=== PATIENT | male | born 1995 | race Caucasian/White ===

== ENCOUNTER 2024-11-17 08:43 | Outpatient (CLI) | payer BC, SELFPAY ==
--- NOTE | ~2024-11-17 | MR_ITS ---
EXAMINATION: MR pelvis wo/w con DATE: 11/17/2024 10:04 INDICATION: Other intra-abdominal and pelvic swelling or mass. TECHNIQUE: Magnetic resonance imaging (MRI) of the pelvis was performed without and with 15 mL Multih ance intravenous contrast. Sequences included coronal T2-weighted SS-FSE, coronal and axial FS 2D-FI ESTA, axial STIR FSE, axial T2-weighted SS-FSE, axial T2-weighted FS SS-FSE, axial diffusion-weighted SE, axial dual-echo T1-weighted FSPGR, and axial and coronal T1-weighted LAVA. Postcontrast axial T1 -weighted LAVA images were obtained in a time course. Postcontrast coronal T1-weighted LAVA images we re obtained. COMPARISON: CT dated 10/30/1953 FINDINGS: Again seen is a 7.6 x 5.9 x 5.9 cm retrorectal/presacral mass which is T1 isointense and slightly T2 hyperintense to skeletal muscle. The mass demonstrates a heterogeneous pattern of enhancement. Caudal ly the mass appears to encircle the caudal-most coccygeal segment. There is normal bone marrow signal both at the coccyx and remainder of the visualized bones. There appears be a thin intervening fat pl ane between the anterior margin of the mass in the more anterior rectum. Bladder and prostate are unr emarkable. No bowel obstruction. No free fluid in the pelvis. No pathologically enlarged pelvic or in guinal lymphadenopathy. IMPRESSION: 1. Heterogeneous enhancement associated with a 7.6 x 5.9 x 5.9 cm retrocecal/presacral mass, the post erior portion of which surrounds the distalmost coccygeal segment. Differential as previously detaile d includes both benign and malignant etiologies and would recommend percutaneous core needle biopsy. Reviewed, dictated and finalized at location A. STOCK TRANSFER CLERK IMPRESSION: 1. Heterogeneous enhancement associated with a 7.6 x 5.9 x 5.9 cm retrocecal/pr esacral mass, the posterior portion of which surrounds the distalmost coccygeal segment. Differential as previously detailed includes both benign and malignan t etiologies and would recommend percutaneous core needle biopsy.
--- OUTSIDE RECORDS SUMMARY | 2024-11-17 09:13 | XMS_ITS | Patient Health Summary ---
Author Organization [facility] Address [address] [place] [address] Care Team Providers Care Coin Machine Servicer Repairer Name Role Phone Unavailable Primary Care Provider Unavailabl e Note from [facility],non-owned Affiliates and Associated Physician Practices is amultiple site organization consisting of ambulatory clinics and hospital sitesin [place], [place], [place] and [place]. This disclosure is being madepursuant to the Care Everywhere program and may not contain all information available regarding this patient. Last updated 18.[facility] [email or web address] Social History Tobacco Use Types Packs/Day Years Used Date Smoking Tobacco: Never Assessed Sex and Gender Information Value Date Recorded Sex Assigned at Not on file Gender Identity Not on file Sexual Orientation Not on file
--- OUTSIDE RECORDS SUMMARY | 2024-11-17 09:13 | XMS_ITS | Clinical Summary ---
Author Organization [facility] Address [address] [address] Care Team Providers Care Watch Leader Name Role Phone Unavailable Primary Care Provider Unavailabl e Source Comments [facility],non-owned Affiliates and Associated Physician Practices is amultiple site organization consisting of ambulatory clinics and hospital sitesin [place], [place], [place] and [place]. This disclosure is being madepursuant to the Care Everywhere program and may not contain all information available regarding this patient. Last updated 18.[facility] Health Encounters Date Type Department Care Team Description 11/15/2024 Travel from Last 3 Months Social History Tobacco Use Types Packs/Day Years Used Date Smoking Tobacco: Never Assessed Sex and Gender Information Value Date Recorded Sex Assigned at Not on file Gender Identity Not on file Sexual Orientation Not on file Plan of Treatment Upcoming Encounters Date Type Department Care Team (Late st Contact Info) Description 11/20/2024 1:15 PM FEEDER CATCHER Office Visit [facility] - General Surgery [address] [place] [id number] Mitul Hdz MD [address] [facility] [address] [place] [id number] Health Maintenance Due Date Last Done Comments HIV SCREENING 2009 HEPATITIS C SCREENING 12/23/2012 DTAP/TDAP/TD VACCINES (1 - Tdap) 2013 HEPATITIS B VACCINE (1 of 3 - 19+ 3-dose series) 2013 COVID-19 VACCINE ( - 2023-2 5 season) 2024 INFLUENZA VACCINE (#1) 2024 DEPRESSION SCREENING 09/27/2024 ZOSTER VACCINE (1 of 2) 2044 HIB VACCINE Aged Out No longer eligi ble based on patient's age to complete this topic HPV VACCINE Aged Out No longer eligi ble based on patient's age to complete this topic MENINGOCOCCAL (Group B) VACCINE Aged Out No longer eligible based on patient's age to complete this topic MENINGOCOCCAL VACCINE Aged Out No sherlyn amie eligible based on patient's age to complete this topic PNEUMOCOCCAL VACCINE Aged Out No long er eligible based on patient's age [place] [address] Lupillo Pickering Personal/Family Self 1995
--- OUTSIDE RECORDS SUMMARY | 2024-11-17 09:13 | XMS_ITS | Clinical Summary ---
Author Organization [facility] Address [address] [place] [address] Phone Care Team Providers Care Watch Guard Gate Name Role Phone Vivi Erickson MD Primary Care Provider [phone] Allergies No known active allergies Medications finasteride (PROSCAR) 5 mg tabletIndications :Encounter for preventative adult health care examination Take 0.5 Tablets (2.5 mg) by mouth daily. TAKE ONE-HALF (1/2) TABLET DAILY 10 Tablet 1 Active Active Problems No known active problems Social History Tobacco Use Types Packs/Day Years Used Date Smoking Tobacco: Never Smokeless Tobacco: Never Sex and Gender Information Value Date Recorded Sex Assigned at Not on file Legal Sex Male 4:36 PM CDT Gender Identity Not on file Sexual Orientation Not on file Last Filed Vital Signs Vital Sign Reading Time Taken Comments Blood Pressure 136/80 07/10/2019 9:57 AM CDT Pulse 58 07/10/2019 9:57 AM CDT Temperature - - Respiratory Rate - - Oxygen Saturation - - Inhaled Oxygen Concentration - - Weight 67.6 kg (149 lb) 07/10/2019 9:57 AM CDT Height 180.3 cm (5' 11 ) 07/10/2019 9:57 AM CDT Body Mass Index 20.78 07/10/2019 9:57 AM CDT Plan of Treatment Health Maintenance Due Date Last Done Comments HEPATITIS B VACCINES (1 of 3 - 19+ 3-dose series) 2013 INFLUENZA VACCINE (#1) 2024 08/24/2016 Preventative Visit- Commercial 09/27/2024 07/10/2019, 04/11/2018 DTAP/TDAP/TD VACCINES (2 - T d or Tdap) 12/15/2028 12/15/2018 HPV VACCINES Aged Out No longer eligi ble based on patient's age to complete this topic Insurance [facility] BLUE ACCESS CHOICE Care Teams Watch Guard Gate Relationship Specialty [place] [address] [place] [id number] PCP - General Family Practice 04/11/18
--- OUTSIDE RECORDS SUMMARY | 2024-11-17 09:13 | XMS_ITS | Referral Summary ---
Author Organization [facility] Address [address] [place] [address] Care Team Providers Care Gelatin Dynamite Packing Operator Name Role Phone Unavailable Primary Care Provider Unavailabl e Source Comments [facility],non-owned Affiliates and Associated Physician Practices is amultiple site organization consisting of ambulatory clinics and hospital sitesin [place], [place] and [place]. This disclosure is being madepursuant to the Care Everywhere program and may not contain all information available regarding this patient. Last updated 18.[facility] Health Encounters Date Type Department Care Team [...] st Contact Info) Description 11/20/2024 1:15 PM SENIOR QUALITY MANAGER Office Visit [facility] - General Surgery [address] [place] [id number] Mitul Hdz MD [address] [facility] [address] [place] [address] Raheel Lupillo Personal/Family Self 1995
== END 2024-11-17 08:44 | disposition home or self-care (01) ==
LOC: ANHIMG 08:47
PROVIDERS: PCP Family Medicine; Visit Provider Surgery
DX: R22.9 Localized swelling, mass and lump, unspecified (principal); R19.09 Other intra-abdominal and pelvic swelling, mass and lump
CPT/HCPCS: 72197; A9577

== ENCOUNTER 2025-01-31 14:31 | Outpatient (CLI) | payer BC, SELFPAY ==
--- NOTE | ~2025-01-31 | MR_ITS ---
EXAMINATION: MR pelvis wo/w con DATE: 01/31/2025 15:49 INDICATION: Chordoma of the pelvis TECHNIQUE: Magnetic resonance imaging (MRI) of the pelvis was performed without and with 14 mL Multih ance intravenous contrast. Sequences included coronal T2-weighted SS-FSE, coronal and axial FS 2D-FI ESTA, axial STIR FSE, axial T2-weighted SS-FSE, axial T2-weighted FS SS-FSE, axial diffusion-weighted SE, axial dual-echo T1-weighted FSPGR, and axial and coronal T1-weighted LAVA. Postcontrast axial T1 -weighted LAVA images were obtained in a time course. Postcontrast coronal T1-weighted LAVA images we re obtained. COMPARISON: 11/17/2024 FINDINGS: No significant interval change in a 7.7 x 5.5 x 5.8 cm presacral mass which encircles the caudal-most coccygeal segment. The mass is T1 isointense and slightly T2 hyperintense to skeletal muscle with he terogeneous pattern of enhancement. Normal marrow signal within the coccyx and remaining bones. There is a retained saturating T1 hyperintense fat plane between the mass and the rectum. Bladder and pros arriola are unremarkable. No pathologically enlarged pelvic or inguinal lymphadenopathy. IMPRESSION: 1. No significant interval change in a 7.7 x 5.8 x 5.8 cm and presacral mass which surrounds the dist almost coccygeal segment, reportedly a chordoma. Reviewed, dictated and finalized at location A. IMPRESSION: 1. No significant interval change in a 7.7 x 5.8 x 5.8 cm and presacral mass wh ich surrounds the distalmost coccygeal segment, reportedly a chordoma.
--- OUTSIDE RECORDS SUMMARY | 2025-01-31 14:37 | XMS_ITS | Clinical Summary ---
Author Organization [facility] Address [address] [place] [address] Care Team Providers Care [employer] Caser Name Role Phone Ulises Han MD Primary Care Provider [phone] Source Comments [facility],non-owned Affiliates and Associated Physician Practices is amultiple site organization consisting of ambulatory clinics and hospital sitesin [place], [place], [place] and [place]. This disclosure is being madepursuant to the Care Everywhere program and may not contain all information available regarding this patient. Last updated 18.[facility] Allergies No known active allergies Medications * Be aware that medications may not be up to date on this document. Alwaysverify current medications with the patient. finasteride (Propecia) 1 MG tablet Take 1 (one) tablet by mouth once daily Active polyethylene glycol (Golytely) solution Drink half of prep solution at 5pm the night before colonoscopy. Finish the prep at 4am the day of test. 4000 mL 01/04/2025 Active Active Problems Problem Noted Date Diagnosed Date Pelvic mass 11/20/2024 Encounters Date Type Department Care Team Description 01/09/2025 10:30 AM CDT - 01/09/2025 11:15 AM CDT Surgery [facility] ENDOSCOPY [address] [place] [address] Caesar Coe MD COLONOSCOPY SCREEN 01/09/2025 9:56 AM CDT Anesthesia Event [facility] ENDOSCOPY [address] [place] [address] Vance Zambrano DO Mette, Katherine A, VEGETABLE COOK-WEAVER NEEDLE LOOM 01/09/2025 9:02 AM CDT - 01/09/2025 11:20 AM CDT Hospital Encounter [facility] ANA OP [address] [place] [address] Caesar Coe MD Surgery General Discharge Disposition: Home or Self Care 01/09/2025 Travel 01/04/2025 8:30 AM CDT Office Visit [facility] - General Surgery [address] [place] [address], [place] [address] Diana Basilio MD Ganglioneuroma (Primary Dx) 01/04/2025 8:00 AM CDT Office Visit [facility] - General Surgery [address] [place] [phone] Tanya Dempsey MD Chordoma of pelvis (HCC) (Primary Dx) 01/04/2025 Orders Only [facility] ENDOSCOPY [address] [place] [address] Ofelia Terrazas RN 01/04/2025 Travel 12/19/2024 Telephone [facility] - Orthopedic Surgery [address] [place] [phone] Maryanne Navarrete, JOSE J Results (Patient left a voicemail message early last evening with request for a conversation regarding his biopsy results. I returned patient's call and explained Dr. Yuan was awaiting a conversation with a coordinating physician before contacting patient. He verbalized understanding.) 12/12/2024 9:54 AM CDT - 12/12/2024 2:00 PM CDT Hospital Encounter [facility] ANA OP [address] [place] [address] Sravan Yuan MD Green, David L, MD [facility] Discharge Disposition: Home or Self Care 12/12/2024 Travel 12/01/2024 9:30 AM PLATE GLASS GRINDER Office Visit [facility] - Orthopedic Surgery [address] [place] [phone] Sravan Yuan MD Pelvic mass (Primary Dx) 12/01/2024 8:59 AM PLATE GLASS GRINDER - 12/01/2024 11:59 PM PLATE GLASS GRINDER Hospital Encounter [facility] DIAGNOSTIC RAD OP [address] [place] [address] Sravan Yuan MD Discharge Disposition: Home or Self Care 12/01/2024 Travel 11/30/2024 Orders Only [facility] - Orthopedic Surgery [address] [place] [phone] Sravan Yuan MD Pelvic mass 11/28/2024 Travel 11/23/2024 Travel 11/20/2024 1:15 PM PLATE GLASS GRINDER Office Visit [facility] - General Surgery [address] [place] [phone] Mitul Hdz MD Chordoma of pelvis (Primary Dx); Pelvic mass 11/20/2024 Travel 11/15/2024 Travel from Last 3 Months Social History Tobacco Use Types Packs/Day Years Used Date Smoking Tobacco: Never Smokeless Tobacco: Never Tobacco Cessation:Counseling Given: No Alcohol Use Standard Drinks/Week Comments Yes 0 (1 standard drink = 0.6 oz pur e alcohol) 1-2 beer or wine a drink PHQ-2 Answer Date Recorded Patient Health Questionnaire-2 Score 0 12/01/2024 Sex and Gender Information Value Date Recorded Sex Assigned at Not on file Legal Sex Male 7:30 PM PLATE GLASS GRINDER Gender Identity Not on file Sexual Orientation Not on file Last Filed Vital Signs Vital Sign Reading Time Taken Comments Blood Pressure 109/71 01/09/2025 10:50 AM CDT Pulse 58 01/09/2025 10:50 AM CDT Temperature 36.6 C (97.8 F) 01/09/2025 10:28 AM CDT Respiratory Rate 14 01/09/2025 10:50 AM CDT Oxygen Saturation 100% 01/09/2025 10:50 AM CDT Inhaled Oxygen Concentration 21% 12/12/2024 1 :30 PM CDT Weight 73 kg (161 lb) 01/04/2025 7:53 AM CDT Height 177.8 cm (5' 10 ) 01/04/2025 7:53 AM CDT Body Mass Index 23.1 01/04/2025 7:53 AM CDT Plan of Treatment Health Maintenance Due Date Last Done Comments HIV SCREENING 2009 HEPATITIS C SCREENING 12/23/2012 DTAP/TDAP/TD VACCINES (1 - Tdap) 2013 HEPATITIS B VACCINE (1 of 3 - 19+ 3-dose series) 2013 COVID-19 VACCINE (1 - 2023- season) 2024 ZOSTER VACCINE (1 of 2) 2044 INFLUENZA VACCINE Completed 06/27/2024, , 09/04/2021, Additional history exists DEPRESSION SCREENING Completed 12/01/2024 HIB VACCINE Aged Out No longer eligi ble based on patient's age to complete this topic HPV VACCINE Aged Out No longer eligi ble based on patient's age to complete this topic MENINGOCOCCAL (Group B) VACCINE SHARED DECISION-MAKING Aged Out No longer eligible based on patient's age to complete this topic MENINGOCOCCAL GROUPS A/C/Y/W VACCINE Aged Out No longer eligible based on patient's age to complete this topic PNEUMOCOCCAL VACCINE Aged Out No long er eligible based on patient's age to complete this topic Procedures Procedure Name Priority Date/Time Associated Diagnosis Comments ENDOSCOPY, COLON, SCREENING Routine 01/09/2025 9:53 AM CDT [facility] CANC SCRN,SCOPY NOT HI RISK 01/09/2025 9:52 AM CDT Chordoma of pelvis (HCC) Special Needs Colonoscopy Received: Today Mary Black, RN P [facility] Schedulers - Endoscopy Pool Hi This katarina needs a colonoscopy. This month or early next would be great if possible. Order is in Thanks mary Received Date Received Time Jan 04, 2025 8:[address] RETROPERITONEAL BIOPSY Routine 12/12/2024 12:14 PM CDT Pelvic mass PATHOLOGY TISSUE Routine 12/12/2024 12:00 PM CDT Pelvic mass PT-INR H STAT 12/12/2024 10:15 AM CDT Pelvic mass Retroperitoneal mass CBC W AUTO DIFFERENTIAL STAT 12/12/2024 10:15 AM CDT Pelvic mass Retroperitoneal mass BASIC METABOLIC PANEL (CALCIUM TOTAL) STAT 12/12/2024 10:15 AM CDT Pelvic mass Retroperitoneal mass XR PELVIS 3VW OR MORE Routine 12/01/2024 9:08 AM PLATE GLASS GRINDER Pelvic mass from Last 3 Months Results * ENDOSCOPY, COLON, SCREENING (01/09/2025 9:53 AM CDT) Report Endoscopy POC Endoscopy Department Report _ Patient Name: Lupillo Pickering Procedure Date: 01/09/2025 9:53 AM Date of : 1995 Classification: Outpatient Gender: Male Ethnicity: Not or Race: White _ Providers: Caesar Coe MD Referring MD: Ulises Han MD (Referring MD) Procedure: Colonoscopy Indications: Abnormal MRI of the GI tract Medications: Monitored Anesthesia Care Description of Procedure: Pre-Anesthesia Assessment: - ASA Grade Assessment: II - A patient with mild systemic disease. - After reviewing the risks and benefits, the patient was deemed in satisfactory condition to undergo the procedure. After I obtained informed consent, the scope was passed under direct vision. Throughout the procedure, the patient's blood pressure, pulse, and oxygen saturations were monitored continuously. The PCF-[id number] was introduced through the anus and advanced to the terminal ileum. The colonoscopy was performed without difficulty. The patient tolerated the procedure well. The quality of the bowel preparation was adequate. The terminal ileum, ileocecal valve, appendiceal orifice, and rectum were photographed. Findings: The colon (entire examined portion) appeared normal. Estimated Blood Loss: Estimated blood loss: none. Complications: No immediate complications. Impression: - The entire examined colon is normal. - No specimens collected. Specifically there was no evidence of any intraluminal lesions or stenoses. Recommendation: - Repeat colonoscopy in 7-10 years. - Resume regular diet. Procedure Code(s): --- Professional --- 39213, Colonoscopy, flexible; diagnostic, including collection of specimen(s) by brushing or washing, when performed (separate procedure) Diagnosis Code(s): --- Professional --- R93.3, Abnormal findings on diagnostic imaging of other parts of digestive tract CPT copyright 2021 [employer]. All rights reserved. The codes documented in this report are preliminary and upon analysis lead review may be revised to meet current compliance requirements. Caesar Coe MD 01/09/2025 10:20:34 AM Note Initiated On: 01/09/2025 9:53 AM Number of Addenda: [id number] [place] [address] [facility] 01/09/2025 9:53 AM CDT Caesar Coe MD GI PROCEDURE ORDERABLES Edited Result - Final [facility] * CT RETROPERITONEAL BIOPSY([id number]) (12/12/2024 12:14 PM CDT) Anatomical Region Laterality Modality Abdomen Computed Tomogra phy 12/12/2024 1:06 PM CDT Impressions 12/12/2024 1:13 PM CDT Impression: CT-guided core biopsy of pre-sacral mass, as described above. The pathology report is pending at the time of this dictation. I, Dr. Radha Nowak performed/was present throughout the procedure Moderate sedation on this patient was ordered by me, administered intravenously in my presence, and monitored by the procedure nurse as an independent trained observer who was present throughout the procedure. The following parameters were monitored: oxygen saturation, heart rate, blood pressure, and response to care. Intra-service sedation start time was 12:11 and end time was 12:38 during which I was present. Total physician intra-service sedation time was 27 minutes. For details on pre moderate sedation and post moderate sedation patient evaluation, please review the evaluation forms in [facility]. For details on monitored clinical parameters during the intra-service sedation time, please review the procedure nurse documentation in [facility]. > Interpreting Provider: Radha Nowak MD on 12/12/2024 1:13 PM Narrative 12/12/2024 1:13 PM CDT History: 28 year old male with presacral mass, presenting for biopsy. Operators: 1.Dr. Nowak, Attending Physician Anesthesia: 1.Local anesthesia - 10 mL of 1% lidocaine 2.Intravenous conscious sedation - Versed 2 mg and Fentanyl 100 mcg Procedure: 1.Limited non-contrast CT of the pelvis. 2.CT-guided core biopsy of presacral mass. 3.Post-procedure limited non-contrast CT of the pelvis. Procedure in detail: The procedure, risks, and possible complications were explained to the patient in detail, and informed consent was obtained. The patient was placed in a prone position on the CT table and a radio-opaque grid was placed over the region of interest. Limited non-contrast CT of the pelvis showed pre sacral mass measuring 5 x 7.5 cm. A percutaneous entry site was marked on the skin to access the targeted mass. The patient received intravenous Versed and Fentanyl for conscious sedation. A qualified radiology nurse monitored the patient s vital signs throughout the procedure. The marked site and skin around the region was prepped and draped in sterile fashion. Local anesthesia was provided with 1% Lidocaine. A 17-gauge co-axial needle system was advanced in stages under CT guidance. With the needle tip at the edge of the lesion, five core samples were acquired with an 18-gauge Bard Spencer and Corvacet biopsy device. The samples were sent to the pathology service. Tract was embolized with gel foam. Final post-biopsy imaging did not show any immediate complications such as major hemorrhage. The patient tolerated the procedure well and was transferred to the holding area in stable condition. Procedure Note Radha Nowak, DO - 12/12/2024 History: 28 year old male with presacral mass, presenting for biopsy. Operators: 1.Dr. She, Attending Physician Anesthesia: 1.Local anesthesia - 10 mL of 1% lidocaine 2.Intravenous conscious sedation - Versed 2 mg and Fentanyl 100 mcg Procedure: 1.Limited non-contrast CT of the pelvis. 2.CT-guided core biopsy of presacral mass. 3.Post-procedure limited non-contrast CT of the pelvis. Procedure in detail: The procedure, risks, and possible complications were explained to the patient in detail, and informed consent was obtained. The patient was placed in a prone position on the CT table and a radio-opaque grid was placed over the region of interest. Limited non-contrast CT of thepelvis showed pre sacral mass measuring 5 x 7.5 cm. A percutaneous entry sitewas marked on the skin to access the targeted mass. The patient received intravenous Versed and Fentanyl for conscious sedation. A qualified radiology nurse monitored the patient s vital signs throughout the procedure. The marked site and skin around the region was prepped and draped in sterile fashion. Local anesthesia was provided with 1% Lidocaine. A 17-gauge co-axial needle system was advanced in stages under CTguidance. With the needle tip at the edge of the lesion, five core samples were acquired with an 18-gauge Bard Spencer and Corvacet biopsy device. The samples were sent to the pathology service. Tract was embolized with gel foam. Final post-biopsy imaging did not show any immediate complications suchas major hemorrhage. The patient tolerated the procedure well and was transferred to the holding area in stable condition. Impression: CT-guided core biopsy of pre-sacral mass, as describedabove. The pathology report is pending at the time of this dictation. I, Dr. Radha Nowak performed/was present throughout the procedureModerate sedation on this patient was ordered by me, administered intravenouslyin my presence, and monitored by the procedure nurse as an independenttrained observer who was present throughout the procedure. The followingparameters were monitored: oxygen saturation, heart rate, blood pressure, andresponse to care. Intra-service sedation start time was 12:11 and end time was12:38 during which I was present. Total physician intra-service sedation timewas 27 minutes. For details on pre moderate sedation and post moderatesedation patient evaluation, please review the evaluation forms in [facility]. Fordetails on monitored clinical parameters during the intra-service sedation time, please review the procedure nurse documentation in [facility]. > Interpreting Provider: Radha Nowak MD on 12/12/2024 1:13 PM Sravan Yuan MD CT ORDERABLES Final Resul t * PATHOLOGY TISSUE (12/12/2024 12:00 PM CDT) Case Report Surgical Pathology Report Case: [id number] Authorizing Provider: Sravan Yuan MD Collected: 12/12/2024 12:00 PM Ordering Location: [facility] - Received: 12/12/2024 01:23 PM Orthopedic Surgery Pathologist: Sravan Hsu MD Specimen: Sacrum, CT-guided core biopsy of presacral mass 12/13/2024 4:45 PM CDT 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 NOTE: This case was reviewed by a second departmental pathologist with diagnostic agreement. 12/13/2024 4:45 PM CDT [facility] Microscopic Description and Comment Sections show a low cellular proliferation of bland spindle shaped cells within a fibrocollagenous stroma. Focal ganglion cells and mast cells are noted. There is no evidence of cellular atypia, necrosis, or mitotic activity. Immunohistochemical stains for S100 and Smooth Muscle Actin are strongly positive within the neoplastic cells, while desmin is negative. All controls stain appropriately. 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 Received in formalin, labeled specimen A , are multiple cylindrical pieces of senior-white tissue, each 1 mm in diameter, with lengths ranging up to 1.6 cm. Entirely submitted in cassette A1. DF 12/13/2024 4:45 PM CDT [facility] Pathologist Location at [facility] 12/13/2024 4:45 PM CDT [facility] Disclaimer The performance characteristics of all immunohistochemical and indirect immunofluorescence stains (if any) cited in this report were determined by the Histopathology Laboratory of [facility]. Some of these tests were developed by our own laboratory and have not been cleared or approved by the US Food and Drug Administration. The FDA does not require this test to go through premarket FDA review. These tests are used for clinical purposes. They should not be regarded as investigational or for research. This laboratory is certified under the Clinical Laboratory Improvement Amendments (CLIA) as qualified to perform high complexity clinical laboratory testing. This case has been personally reviewed and interpreted by the attending (teaching) pathologist. 12/13/2024 4:45 PM CDT [facility] Collected By Sravan Yuan MD 12/13/2024 4:45 PM CDT [facility] Embedded Images 12/13/2024 4:45 PM CDT [facility] Pathology/Cytology ENTIRE SACRAL VERTEBRAL COLUMN / Unknown 12/12/2024 12:00 PM CDT 12/12/2024 1:23 PM CDT Comment:Evaluate posterior r etroperitoneal mass for malignancy Sravan Yuan MD LAB - PATHOLOGY/CYTOLOGY OR DERABLES Final Result [facility] [address] [phone] * PT-INR [facility] (12/12/2024 10:15 AM CDT) PT 13.3 12.1 - 14.8 Seconds 12/12/2024 10:49 AM T [facility] INR 1.0 See Comment 12/12/2024 10:49 AM T [facility] Comment:The suggested therap eutic range for standard coumadin (warfarin) therapy is an INR of 2.0-3.0. For high-risk patients (Mechanical Mitral Valve Prosthesis, etc.), the suggested prophylactic therapeutic range is an INR of 2.5-3.5. Blood BLOOD SPECIMEN / Unknown Venipuncture / Unknown 12/12/2024 10:15 AM CDT 12/12/2024 10:19 AM CDT Taryn Springer VEGETABLE COOK-OPENSTACK CLOUD CONSULTING ARCHITECT LAB - COAGULA TION ORDERABLES Final Result [facility] [address] [place] [address], [facility] [phone] * (ABNORMAL) CBC W AUTO DIFFERENTIAL (12/12/2024 10:15 AM CDT) WBC 5.7 4.0 - 10.7 x10E9/L 12/12/2024 10:28 AM [facility] RBC Count 5.87(H) 4.30 - 5.80 x10E12/L 12/12/2024 10:28 AM [facility] Hemoglobin 16.5 13.3 - 17.5 g/dL 12/12/2024 10:28 AM [facility] Hematocrit 48.7 38.7 - 51.1 % 12/12/2024 10:28 AM [facility] MCV 83.0 80.0 - 98.0 fL 12/12/2024 10:28 AM [facility] MCH 28.1 26.7 - 33.6 pg 12/12/2024 10:28 AM [facility] MCHC 33.9 31.7 - 36.3 g/dL 12/12/2024 10:28 AM [facility] RDW-CV 11.6 11.3 - 14.8 % 12/12/2024 10:28 AM [facility] Platelet Count 246 150 - 420 x10E9/L 12/12/2024 10:28 AM [facility] MPV 9.4 7.8 - 11.4 fL 12/12/2024 10:28 AM [facility] Neutrophil % 61.4 41.0 - 74.0 % 12/12/2024 10:28 AM [facility] Lymphocyte % 30.3 17.0 - 47.0 % 12/12/2024 10:28 AM [facility] Monocyte % 6.2 3.0 - 11.0 % 12/12/2024 10:28 AM [facility] Eosinophil % 1.2 0.0 - 7.0 % 12/12/2024 10:28 AM [facility] Basophil % 0.5 0.0 - 1.6 % 12/12/2024 10:28 AM [facility] Immature Granulocytes % 0.4 0.0 - 1.0 % 12/12/2024 10:28 AM [facility] Neutrophil Absolute 3.47 1.60 - 7.50 x10E9/L 12/12/2024 10:28 AM [facility] Lymphocyte Absolute 1.71 1.00 - 4.40 x10E9/L 12/12/2024 10:28 AM [facility] Monocyte Absolute 0.35 0.15 - 1.00 x10E9/L 12/12/2024 10:28 AM [facility] Eosinophil Absolute 0.07 0.00 - 0.60 x10E9/L 12/12/2024 10:28 AM [facility] Basophil Absolute 0.03 0.00 - 0.13 x10E9/L 12/12/2024 10:28 AM [facility] Blood BLOOD SPECIMEN / Unknown Venipuncture / Unknown 12/12/2024 10:15 AM CDT 12/12/2024 10:23 AM CDT us Taryn Springer [employer]GET[employer] CLOUD CONSULTING ARCHITECT LAB - HEMATOL OGY ORDERABLES Final Result [facility] [address] [place] [phone], [facility] [phone] * BASIC METABOLIC PANEL (CALCIUM TOTAL) (12/12/2024 10:15 AM CDT) BUN 9 7 - 26 mg/dL 12/12/2024 10:53 AM [facility] Creatinine 0.72 0.71 - 1.16 mg/dL 12/12/2024 10:53 AM [facility] Sodium 141 136 - 145 mmol/L 12/12/2024 10:53 AM [facility] Potassium 3.9 3.5 - 4.5 mmol/L 12/12/2024 10:53 AM [facility] Chloride 107 98 - 107 mmol/L 12/12/2024 10:53 AM [facility] CO2 25 22 - 29 mmol/L 12/12/2024 10:53 AM [facility] Glucose 90 70 - 99 mg/dL 12/12/2024 10:53 AM [facility] Calcium 9.7 8.4 - 10.2 mg/dL 12/12/2024 10:53 AM [facility] Anion Gap 9 6 - 16 12/12/2024 10:53 AM [facility] BUN/Creatinine Ratio 13 7 - 23 12/12/2024 10:53 AM [facility] Osmolality Calculated 290 275 - 295 mOsm/kg 12/12/2024 10:53 AM [facility] eGFR by CKD-EPI >90 >=90 mL/min/1.7 3 m2 12/12/2024 10:53 AM [facility] Blood BLOOD SPECIMEN / Unknown Venipuncture / Unknown 12/12/2024 10:15 AM CDT 12/12/2024 10:23 AM [facility] Taryn Springer VEGETABLE [employer]-OPEN[employer] CLOUD CONSULTING ARCHITECT LAB - GRILL ATTENDANT RY ORDERABLES Final Result [facility] [address] [place] [phone], [facility] [phone] * XR Pelvis 3Vw or More (12/01/2024 9:08 AM PLATE GLASS GRINDER) Anatomical Region Laterality Modality Pelvis Digital Radiogra phy 12/01/2024 9:11 AM PLATE [employer]ASS GR[employer]ER Impressions 12/01/2024 9:31 AM PLATE [employer]ASS GR[employer]ER IMPRESSION: No sacral abnormality visible on this frontal exam. Tip of the coccyx is not well visible and might be partially destructed. This study was interpreted and reported by Luis Florez MD (attending radiologist) 12/01/2024 9:11 AM. > Interpreting Provider: Luis Florez MD on 12/01/2024 9:31 AM Narrative 12/01/2024 9:31 AM PLATE GLASS GR[employer]ER PROCEDURE: XR PELVIS 3VW OR MORE, DATE/TIME OF EXAM: 12/01/2024 9:08 AM, LOCATION [facility] [place] INDICATION: R19.00: Pelvic mass ADDITIONAL CLINICAL INFORMATION: Ordering Provider Reason For Exam: evaluate a sacral lesion Technologist Note: Additional: COMPARISON: Outside CT abdomen pelvis whereby the hospital chart mentions a pelvic mass is not immediately available for review. FINDINGS: No sacral abnormality is identified; arcuate lines are preserved. Tip of the coccyx is not well visible and might be partially destructed. The femoral heads appear well-seated within their respective acetabula. The pubic symphysis is intact. Bone density and texture are normal. The sacroiliac joints are normal. No acute fracture, subluxation or dislocation is visible. Procedure Note Luis Florez MD - 12/01/2024 PROCEDURE: XR PELVIS 3VW OR MORE, DATE/TIME OF EXAM: 12/01/2024 9:08 AM, LOCATION [facility] INDICATION: R19.00: Pelvic mass ADDITIONAL CLINICAL INFORMATION: Ordering Provider Reason For Exam: evaluate a sacral lesion Technologist Note: Additional: COMPARISON: Outside CT abdomen pelvis whereby the hospital chart mentions a pelvicmass is not immediately available for review. FINDINGS: No sacral abnormality is identified; arcuate lines are preserved. Tip of the coccyx is not well visible and might be partially destructed. The femoral heads appear well-seated within their respective acetabula. The pubic symphysis is intact. Bone density and texture are normal. The sacroiliac joints are normal. No acute fracture, subluxation ordislocation is visible. IMPRESSION: No sacral abnormality visible on this frontal exam. Tip of the coccyx is not well visible and might be partially destructed. This study was interpreted and reported by Luis Florez MD (attending radiologist) 12/01/2024 9:11 AM. > Interpreting Provider: Luis Florez MD on 12/01/2024 9:31 AM Sravan Yuan MD DIAGNOSTIC IMAGING ORDERABL ES Final Result from Last 3 [place] [phone] ANTHEM Care Teams [employer] Relationship Specialty Start Date End Date Ulises Han MD [address] [place] [address] PCP - General Family Medicine 12/01/24
--- OUTSIDE RECORDS SUMMARY | 2025-01-31 14:37 | XMS_ITS | Clinical Summary ---
Author Organization [facility] Address [address] [place] [address] Phone Care Team Providers Care Route Delivery Service Driver Name Role Phone Vivi Erickson MD Primary Care Provider [phone] Allergies No known active allergies Medications finasteride [...] patient's age to complete this topic Insurance [facility] BLUE ACCESS CHOICE Care Teams Route Delivery Service Driver Relationship Specialty [place] [address] [place] [phone] PCP - General Family Practice 04/11/18
--- OUTSIDE RECORDS SUMMARY | 2025-01-31 14:37 | XMS_ITS | Referral Summary ---
Author Organization [facility] Address [address] [place] [phone] Care Team Providers Care Occupational Therapy Manager Name Role Phone Ulises Han MD Primary Care Provider Aashish Neal MD Unavailable [phone] Zack Leung MD, William C. Unavailable Encounters Date Type Department Care Team Description 01/22/2025 Telephone [facility] Surgery [facility]4 [facility] Medical Office Building 4 [address] [place] [address] Robb Dixon Jr., MD 01/22/2025 Conference of Physicians/Provider s [facility] Surgery [facility]0 [facility] Floor 5 [place] [address] Robb Dixon Jr., MD 01/08/2025 Orders Only [facility] OUTREACH [address] [place] [address] Robb Dixon Jr., MD Presacral mass 12/18/2024 Orders Only [facility] Surgery [address] [facility] [place] 2nd Floor [address] [place] [address] Robb Dixon Jr., MD Presacral mass (Primary Dx) 12/11/2024 Telephone [facility] Surgery [facility] Floor 5 [place] [address] Nevaeh Lakhani RMA 12/07/2024 Orders Only [facility] Surgery [address] [facility] Floor 5 [place] [address] Robb Dixon Jr., MD Presacral mass (Primary Dx) 12/07/2024 Telephone Radiology 1 [place] [address] Negrita Diaz, RT 12/06/2024 4:49 PM CDT - 12/06/2024 11:59 PM CDT Hospital Encounter [facility] [address] [place] [address] Diagnosis unknown Discharge Disposition: Discharge to home or self care 12/06/2024 Orders Only [facility] Surgery [address] [place] [address] Floor 5 [place] [phone] Robb Dixon Jr., MD Presacral mass (Primary Dx) 12/06/2024 Telephone [facility] Surgery [address] [place] [address] Medical Office Building 4 [address] [place] [phone] Robb Dixon Jr., MD 12/04/2024 4:54 PM CDT - 12/04/2024 11:59 PM CDT Hospital Encounter [facility] ([facility] [address] [place] [address] Discharge Disposition: Discharge to home or self care 12/04/2024 Conference of Physicians/Provider s [facility] Surgery [address] [place] [address] 5 [place] [phone] Robb Dixon Jr., MD 11/23/2024 2:30 PM VP COMPLIANCE Office Visit [facility] Surgery [address] [place] [address] 5 [place] [phone] Robb Dixon Jr., MD Presacral mass 11/09/2024 1:32 PM VP COMPLIANCE - 11/09/2024 11:59 PM VP COMPLIANCE Hospital Encounter [facility] [address] [place] [address] Discharge Disposition: Discharge to home or self care 11/07/2024 Orders Only [facility] [address] [facility] [address] [facility] [place] [address] Nicole Oconnell, RMA Rectal mass (Primary Dx) 11/07/2024 Telephone [facility] Surgery [address] [place] [address] Floor 5 [place] [address] Denise Aponte BS Scheduling Appointments (New referral from Dr. Neal.) 11/06/2024 Telephone [facility] Surgery [address] [facility] 5 [place] [address] Denise Aponte BS OTHER (SUCR New rectal mass found during CT ) from Last 3 Months Allergies No known active allergies Medications finasteride (PROPECIA) 1 mg tablet Take 1 tablet (1 mg total) by mouth daily Active Active Problems No known active problems Immunizations Immunization Administration Dates Next Due Influenza, Quadrivalent, Nicole l Culture-based MDCK, Preservative Free, Antibiotic Free, Intramuscular 07/21/2023,09/04/2021,07/03/2019,08/12 Influenza, Quadrivalent, Spl it, Preservative Free, Intramuscular 07/19/2020,08/24/2016 Influenza, Trivalent, Preser vative Free, Intramuscular 06/27/2024 Tdap 12/15/2018 Social History Tobacco Use Types Packs/Day Years Used Date Smoking Tobacco: Never Smokeless Tobacco: Never Tobacco Cessation:Counseling Given: Not Answered Sex and Gender Information Value Date Recorded Sex Assigned at Not on file Legal Sex Male 8:32 AM VP COMPLIANCE Gender Identity Not on file Sexual Orientation Not on file Last Filed Vital Signs Vital Sign Reading Time Taken Comments Blood Pressure 166/94 11/23/2024 2:09 PM VP COMPLIANCE Pulse 77 11/23/2024 2:09 PM VP COMPLIANCE Temperature 36.3 C (97.4 F) 11/23/2024 2:09 PM VP COMPLIANCE Respiratory Rate 16 11/23/2024 2:09 PM VP COMPLIANCE Oxygen Saturation 99% 11/23/2024 2:09 PM VP COMPLIANCE Inhaled Oxygen Concentration - - Weight 71.8 kg (158 lb 6.4 oz) 11/23/2024 2:09 P M VP COMPLIANCE Height 177.8 cm (5' 10 ) 11/23/2024 2:09 PM VP COMPLIANCE Body Mass Index 22.73 11/23/2024 2:09 PM VP COMPLIANCE Plan of Treatment Not on file Procedures Procedure Name Priority Date/Time Associated Diagnosis Comments SURGICAL PATHOLOGY Routine 01/08/2025 3: 29 PM CDT Presacral mass MR BODY OUTSIDE CONSULT Routine 12/06/2024 4:49 PM CDT Diagnosis unknown MR BODY OUTSIDE REFERENCE Routine 12/04/2024 4:[address] BODY OUTSIDE REFERENCE Routine 11/09/2024 1:32 PM VP COMPLIANCE from Last 3 Months Results * Surgical pathology (01/08/2025 3:29 PM CDT) Tissue specimen (specimen) (Miscellaneous) 01/08/2025 3:29 PM CDT 01/08/2025 3:29 PM CDT Narrative [facility] - 01/15/2025 3:04 PM CDT EPIC results best viewed via link to PDF [facility] Pathology Consult Service [facility] [address], [place] [address] Note to Patients: This report may contain a detailed description of human tissue sent by a health care provider to the laboratory for pathologic evaluation. The content of this report is essential for diagnosis and may provide important critical findings. This information may be unfamiliar to patients to review without a medical professional present. It is advised that the patient review this report in the presence of a health care provider who can answer questions and explain the details. SURGICAL PATHOLOGY REPORT * Consult Report * [facility] is providing an additional review of previously collected tissue. FINAL WITH ADDENDUM Patient Name: LUPILLO PICKERING Address: [address] [place] [address] [place] [address] Gender: M : 1995 (Age: 29) Hospital #: [id number] Patient Type: MAGALIS Location: UNKNOWN Taken: 01/08/2025 Received: 01/08/2025 Accessioned: 01/09/2025 Reported: 01/15/2025 Physician(s): Robb Dixon Jr., MAhmet. [facility] Pathology Attn Pathology Dept ATTN: Pathology Department [facility] Pathology- 4th Floor [facility] Room [address] [place] [address] P: [phone] F: [phone] Diagnosis: Consult material received from [facility], [place], [place] (OSC: [id number]; 12/12/2024). Soft tissue, presacral region, needle biopsy - Ganglioneuroma (see comment) /01/15/2025 09:26 By this signature, I attest that the above diagnosis is based upon my personal examination of the slides(and/or other material indicated in the diagnosis). Jefferson Hill M.D. Report Electronically Reviewed and Signed Out By Jefferson Hill M.D. 01/15/2025 15:04:07 Microscopic Description and Comment: Microscopic examination substantiates the above cited diagnosis. Immunohistochemistry (with appropriate controls) were performed on requested block. Sections show low grade spindle cell neoplasm with scattered individual cells with features of ganglion cells. S100 highlight the ganglion cells in addition to staining the spindle cells. Smooth muscle actin and beta-catenin show non specific staining. MUC4 stain will be reported in an addendum. History: The patient is a 29-year-old man with history of presacral mass. Materials Received: Received for review are two slides labeled [id number], accompanied by a corresponding pathology report. The material originates from [facility], [place], [place]. Selected slide(s) may be digitally scanned for our files, and all materials are returned to the referring institution, along with a copy of our final report. Addenda/Procedures Addendum Ordered: 01/15/2025 Status: Signed Out Addendum Complete: 01/15/2025y: Jefferson Hill M.D.Addendum Signed Out: 01/16/2025 Addendum Comment Immunohistochemical stain for MUC4 (with appropriate control) was performed on block A1 and is negative. Original diagnosis remains unchanged. By this signature, I attest that the above diagnosis is based upon my personal examination of the slides(and/or other material indicated in the diagnosis). Jefferson Hill M.D.Report Electronically Reviewed and Signed Out By Jefferson Hill M.D. 01/16/2025 08:56:35Dora Mota D.O. The MUC4 test was performed at [facility], Department of Surgical Pathology, [address] [place] [address]. Any testing required for diagnostic purposes was performed in the Department of Pathology and Immunology at [facility], [address] [place] [address] CLIA # [id number] The performance characteristics of the testing cited in this report (if any) were determined by the [facility] Department of Pathology and Immunology [facility], as part of an ongoing quality assurance engineer program and in compliance with federally mandated regulations drawn from the Clinical Laboratory Improvement Act of 1988 (CLIA '88). Some of these tests rely on the use of analyte specific reagents (ASR) and are subject to specific labeling requirements by the US Food and Drug Administration. Such diagnostic tests may only be performed in a facility that is certified by the Department of Health and Human Services as a high complexity laboratory under CLIA '88. The FDA has determined that such clearance or approval is not necessary. ASRs should not be regarded as investigational or for research. ASRs were developed and the performance characteristics determined by the [facility], [facility] Department of Pathology and Immunology. It has not been cleared or approved by the U.S. Food and Drug Administration. Any test designated as LDT was developed and its performance characteristics determined by [facility]. It has not been cleared or approved by the FDA. This test is used for clinical purposes and should not be regarded as investigational or for research. Report images and/or scanned reports, if included, only viewable in PDF version of report. 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 Possible punctate foci of fat may indicate liposarcoma. This is amenable for percutaneous tissue sampling if clinically needed. The findings, conclusions and recommendations within this report do not replace the initial findings, conclusions and recommendations made at the facility where the study was performed based upon the imaging and clinical condition at that time. Comparison with the prior report and clinical history is necessary. The provided images may or may not represent the [place] source data set and thus may contain changes that may lower the accuracy of this second-opinion interpretation. Dictated by: Mario Alberto Villar M.D. The radiology attending physician has personally reviewed this study, and had reviewed and/or edited this written report and agrees with it. Electronically signed by: Thad Myers M.D. Narrative 12/07/2024 1:06 PM CDT EXAMINATION: RADIOLOGY CONSULTATION ON OUTSIDE IMAGING STUDY STUDY INITIALLY PERFORMED: 11/17/2024 at [facility]. TYPE OF STUDY: Multiple MR images of the pelvis without and with contrast are provided at the time of this interpretation. CONTRAST ROUTE: Contrast was administered via the intravenous route. The protocol was adequate to address the clinical question. The outside final report was not available at the time of this second opinion interpretation. TYPE OF CONSULTATION: Consult on outside imaging study with images submitted through Outside Image Sharing Service DATE OF CONSULTATION: 12/07/2024 10:55 AM HISTORY: 28-year-old with presacral mass COMPARISON: CT from 10/30/2024 FINDINGS: T2 intermediate, diffusion restricting, heterogeneously enhancing presacral mass measuring 6.4 x 4.9 x 5.2 cm with effacement of tissue planes between the coccyx posteriorly, the rectum and anus anteriorly, as well as bilateral levator complex involvement. Evaluation of involvement is limited by lack of high-resolution, small field of view images. Possible minimal focus of intratumoral microscopic fat (). No evidence of bowel obstruction. Urinary bladder within normal limits. No lymphadenopathy. No aggressive osseous lesion. Procedure Note Thad Myers MD - 12/07/2024 EXAMINATION: RADIOLOGY CONSULTATION ON OUTSIDE IMAGING STUDY STUDY INITIALLY PERFORMED: 11/17/2024 at [facility]. TYPE OF STUDY: Multiple MR images of the pelvis without and with contrast are provided at the time of this interpretation. CONTRAST ROUTE: Contrast was administered via the intravenous route. The protocol was adequate to address the clinical question. The outside final report was not available at the time of this second opinion interpretation. TYPE OF CONSULTATION: Consult on outside imaging study with images submitted through Outside Image Sharing Service DATE OF CONSULTATION: 12/07/2024 10:55 AM HISTORY: 28-year-old with presacral mass COMPARISON: CT from 10/30/2024 FINDINGS: T2 intermediate, diffusion restricting, heterogeneously enhancing presacral mass measuring 6.4 x 4.9 x 5.2 cm with effacement of tissue planes between the coccyx posteriorly, the rectum and anus anteriorly, as well as bilateral levator complex involvement. Evaluation of involvement is limited by lack of high-resolution, small field of view images. Possible minimal focus of intratumoral microscopic fat (). No evidence of bowel obstruction. Urinary bladder within normal limits. No lymphadenopathy. No aggressive osseous lesion. 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 Possible punctate foci of fat may indicate liposarcoma. This is amenable for percutaneous tissue sampling if clinically needed. The findings, conclusions and recommendations within this report do not replace the initial findings, conclusions and recommendations made at the facility where the study was performed based upon the imaging and clinical condition at that time. Comparison with the prior report and clinical history is necessary. The provided images may or may not represent the [place] source data set and thus may contain changes that may lower the accuracy of this second-opinion interpretation. Dictated by: Mario Alberto Villar M.D. The radiology attending physician has personally reviewed this study, and had reviewed and/or edited this written report and agrees with it. Electronically signed by: Thad Myers M.D. Robb Dixon Jr., MD IM MRI PROCEDURES Fi nal Result * MR Body Outside Reference (12/04/2024 4:54 PM CDT) Impressions [facility] - 12/04/2024 4:54 PM CDT These images are for Reference purposes only and have not been reviewed by [facility]. There will be no report generated by a [facility] Radiologist. Narrative [facility] - 12/04/2024 4:54 PM CDT EXAMINATION: Images For Reference Purposes Only Jackeline Pedro MD IMG MRI PROC EDURES Final Result Performing Organization Address [facility] Co de Phone Number [facility] * CT Body Outside Reference (11/09/2024 1:32 PM VP COMPLIANCE) Impressions [facility] - 11/09/2024 1:32 PM VP COMPLIANCE These images are for Reference purposes only and have not been reviewed by [facility]. There will be no report generated by a [facility] Radiologist. Narrative [facility] - 11/09/2024 1:32 PM VP COMPLIANCE EXAMINATION: Images For Reference Purposes Only Robb Dixon Jr., MD IMG CT PROCEDURES Fin al Result Performing Organization Address [facility] Co de Phone Number [facility] from Last 3 Months Insurance Placed AL Placed AL BLUE ACCESS CHOICE AL Care Teams Occupational Therapy Manager Relationship Specialty Start Date End Date Ulises Han MD [address] [place] [address] PCP - General Family Medicine 11/06/24 Aashish Neal MD [address] [place] [address] Internal Medicine 11/06/24 Robb Dixon Jr., MD [address] [facility] [phone] [place] [address] Consulting Physician Colon and Rectal Surgery 11/28/24
--- OUTSIDE RECORDS SUMMARY | 2025-01-31 14:37 | XMS_ITS | Clinical Summary ---
Author Organization [facility] Address [address] [place] [address] Care Team Providers Care Hearing Aid Technician Name Role Phone Ulises Han MD Primary Care Provider [phone] Aashish Neal MD Unavailable Zack Leung MD, William C. Unavailable [phone] Allergies No known active allergies Medications finasteride (PROPECIA) 1 mg tablet Take 1 tablet (1 mg total) by mouth daily Active Active Problems No known active problems Encounters Date Type Department Care Team Description 01/22/2025 Telephone [facility] Surgery [address] [facility] Office Building [address] [place] [address] Robb Dixon Jr., MD 01/22/2025 Conference of Physicians/Provider s [facility] Surgery [address] [facility] Floor [address] [place] [address] Robb Dixon Jr., MD 01/08/2025 Orders Only [facility] [address] [place] [address] Robb Dixon Jr., MD Presacral mass 12/18/2024 Orders Only [facility] Surgery [address] [facility] 2nd Floor [address] [place] [phone] Robb Dixon Jr., MD Presacral mass (Primary Dx) 12/11/2024 Telephone [facility] Surgery [address] [facility] Floor [address] [place] [address] Nevaeh Lakhani RMA 12/07/2024 Orders Only [facility] Surgery [facility] Floor [address] [place] [phone] Robb Dixon Jr., MD Presacral mass (Primary Dx) 12/07/2024 Telephone Radiology [address] [place] [address] Negrita Diaz, RT 12/06/2024 4:49 PM CDT - 12/06/2024 11:59 PM CDT Hospital Encounter [facility] [address] [place] [address] Diagnosis unknown Discharge Disposition: Discharge to home or self care 12/06/2024 Orders Only [facility] Surgery [address] [place] [address] [address] [place] [phone] Robb Dixon Jr., MD Presacral mass (Primary Dx) 12/06/2024 Telephone [facility] Surgery [address] [place] [address] Medical Office Building 4 [address] [place] [phone] Robb Dixon Jr., MD 12/04/2024 4:54 PM CDT - 12/04/2024 11:59 PM CDT Hospital Encounter [facility] ([facility]) [address] [place] [address] Discharge Disposition: Discharge to home or self care 12/04/2024 Conference of Physicians/Provider s [facility] Surgery [address] [place] [address] [address] [place] [phone] Robb Dixon Jr., MD 11/23/2024 2:30 PM INSTRUCTION LIBRARIAN Office Visit [facility] Surgery [address] [place] [address] [address] [place] [phone] Robb Dioxn Jr., MD Presacral mass 11/09/2024 1:32 PM INSTRUCTION LIBRARIAN - 11/09/2024 11:59 PM INSTRUCTION LIBRARIAN Hospital Encounter [facility] ([facility]) [address] [place] [address] Discharge Disposition: Discharge to home or self care 11/07/2024 Orders Only [facility] [address] [place] [address] [address] [place] [address] Nicole Oconnell, WILLIAM Rectal mass (Primary Dx) 11/07/2024 Telephone [facility] Surgery [facility] Floor [address] [place] [address] Denise Aponte BS Scheduling Appointments (New referral from Dr. Neal.) 11/06/2024 Telephone [facility] Surgery [facility] Floor [address] [place] [address] Denise Aponte BS OTHER (SUCR New rectal mass found during CT ) from Last 3 Months Immunizations Immunization Administration Dates Next Due Influenza, [...] on file Legal Sex Male 8:32 AM INSTRUCTION LIBRARIAN Gender Identity Not on file Sexual Orientation Not on file Obstetrics History Last Filed Vital Signs Vital Sign Reading Time Taken Comments Blood Pressure 166/94 11/23/2024 2:09 PM INSTRUCTION LIBRARIAN Pulse 77 11/23/2024 2:09 PM INSTRUCTION LIBRARIAN Temperature 36.3 C (97.4 F) 11/23/2024 2:09 PM INSTRUCTION LIBRARIAN Respiratory Rate 16 11/23/2024 2:09 PM INSTRUCTION LIBRARIAN Oxygen Saturation 99% 11/23/2024 2:09 PM INSTRUCTION LIBRARIAN Inhaled Oxygen Concentration - - Weight 71.8 kg (158 lb 6.4 oz) 11/23/2024 2:09 P M INSTRUCTION LIBRARIAN Height 177.8 cm (5' 10 ) 11/23/2024 2:09 PM INSTRUCTION LIBRARIAN Body Mass Index 22.73 11/23/2024 2:09 PM INSTRUCTION LIBRARIAN Plan of Treatment Health Maintenance Due Date Last Done Comments Depression Screening 1995 Hepatitis C Screening 1995 Varicella Vaccines (1 of 2 - 13+ 2-dose series) 12/29/2007 Hepatitis B Screening 2012 Regular Well Visit/Exam 18-64 2012 DTaP/Tdap/Td Vaccine (2 - Td or Tdap) 12/15/2028 12/15/2018 Covid-19 Vaccine Completed 06/27/2024, , 10/15/2021, Additional history exists Influenza Vaccine Completed 06/27/2024, , 09/04/2021, Additional history exists HPV Vaccines Aged Out No longer eligi ble based on patient's age to complete this topic Pneumococcal vaccine <65 Aged Out No longer eligible based on patient's age to complete this topic Procedures Procedure Name Priority Date/Time Associated Diagnosis Comments SURGICAL PATHOLOGY Routine 01/08/2025 3: 29 PM CDT Presacral mass MR BODY OUTSIDE CONSULT Routine 12/06/2024 4:49 PM CDT Diagnosis unknown MR BODY OUTSIDE REFERENCE Routine 12/04/2024 4:[address] BODY OUTSIDE REFERENCE Routine 11/09/2024 1:32 PM INSTRUCTION LIBRARIAN from Last 3 Months Results * Surgical pathology (01/08/2025 3:29 PM CDT) Tissue specimen (specimen) (Miscellaneous) 01/08/2025 3:29 PM CDT 01/08/2025 3:29 PM CDT Narrative [facility] - 01/15/2025 3:04 PM CDT EPIC results best viewed via link to PDF [facility] Pathology Consult Service [address], [place] [address] Note to Patients: This report [...] SURGICAL PATHOLOGY REPORT * Consult Report * [facility] is providing an additional review of previously collected tissue. FINAL WITH ADDENDUM Patient Name: LUPILLO PICKERING Address: [address] [place] [address] [place] [address] Gender: M : 1995 (Age: 29) Hospital #: [id number] Patient Type: MAGALIS Location: UNKNOWN Taken: 01/08/2025 Received: 01/08/2025 Accessioned: 01/09/2025 Reported: 01/15/2025 Physician(s): Robb Dixon Jr., M.D. [facility] Pathology Attn Pathology Dept ATTN: Pathology Department [facility] Pathology- 4th Floor [address] [address] P: [phone] F: [phone] Diagnosis: Consult material received from [facility], [place], [place] (OSC: [id number]; 12/12/2024). Soft tissue, presacral region, needle biopsy - Ganglioneuroma (see comment) mk01/15/2025 09:26 By this signature, I attest that [...] Received for review are two slides labeled [id number], accompanied by a corresponding pathology report. The material originates from [facility], [place], [place]. Selected slide(s) may be digitally scanned [...] D.O. The MUC4 test was performed at [facility], Department of Surgical Pathology, [address] [place] [address]. Any testing required for diagnostic purposes was performed in the Department of Pathology and Immunology at [facility], [address] [place] [address] CLIA # [id number] The performance characteristics of the testing cited in this report (if any) were determined by the [facility] Department of Pathology and Immunology [facility], as part of an ongoing software quality manager program and in compliance with federally mandated [...] and the performance characteristics determined by the [facility], [facility] Department of Pathology and Immunology. It has not been cleared or approved by the U.S. Food and Drug Administration. Any test designated as LDT was developed and its performance characteristics determined by [facility]. It has not been cleared or approved by the FDA. This test is used for clinical purposes and should not be regarded as investigational or for research. Report images and/or scanned reports, if included, only viewable in PDF version of report. us Robb Dixon Jr., MD LAB PATHOLOGY ORDERAB LES Final Result [facility] [address] [place] [address] * MR Body Outside Consult (12/06/2024 4:49 [...] images may or may not represent the jena source data set and thus may contain [...] IMAGING STUDY STUDY INITIALLY PERFORMED: 11/17/2024 at [facility]. TYPE OF STUDY: Multiple MR images of [...] IMAGING STUDY STUDY INITIALLY PERFORMED: 11/17/2024 at [facility]. TYPE OF STUDY: Multiple MR images of [...] images may or may not represent the jena source data set and thus may contain changes that may lower the accuracy of this second-opinion interpretation. Dictated by: Mario Alberto Villar M.D. The radiology attending physician has personally reviewed this study, and had reviewed and/or edited this written report and agrees with it. Electronically signed by: Thad Myers M.D. Robb Dixon Jr., MD [facility] MRI PROCEDURES Fi nal Result * MR Body Outside Reference (12/04/2024 4:54 PM CDT) Impressions [facility] - 12/04/2024 4:54 PM CDT These images are for Reference purposes only and have not been reviewed by [facility] Radiology. There will be no report generated by a [facility] Radiologist. Narrative [facility] - 12/04/2024 4:54 PM CDT EXAMINATION: Images For Reference Purposes Only Jackeline Pedro MD [facility] MRI PROC EDURES Final Result Performing Organization Address [facility] Co de Phone Number [facility] * CT Body Outside Reference (11/09/2024 1:32 PM INSTRUCTION LIBRARIAN) Impressions [facility] - 11/09/2024 1:32 PM INSTRUCTION LIBRARIAN These images are for Reference purposes only and have not been reviewed by [facility] Radiology. There will be no report generated by a [facility] Radiologist. Narrative [facility] - 11/09/2024 1:32 PM INSTRUCTION LIBRARIAN EXAMINATION: Images For Reference Purposes Only Robb Dixon Jr., MD [facility] CT PROCEDURES Fin al Result Performing Organization Address [facility] Co de Phone Number [facility] from Last 3 [place] [address] [place] CHOICE [place] Member Subscriber Plan / [facility] Name:Lupillo Pickering Relation to Subscriber:Self Name:Lupillo Pickering Payer ID:[id number] (NAIC) Group ID:[id number] Type:BC OTHER Address: [address] [place] [address] BLUE [place] CHOICE [place] Member Subscriber Plan / Payer [facility]Present) Name:Lupillo Pickering Relation to Subscriber:Self Name:Lupillo Pickering Payer ID:[id number] (NAIC) Group ID:[id number] Type:BC OTHER Address: [address] [place] [address] BLUE [place] CHO[place] Member Subscriber Plan / Payer [facility]Present) Name:Lupillo Pickering Relation to Subscriber:Self Name:Lupillo Pickering Payer ID:[id number] (NAIC) Group ID:[id number] Type:BC OTHER Address: [address] [place] [address] Care Teams Hearing Aid Technician Relationship Specialty Start Date End Date Ulises Han MD [address] [place] [address] [place] [address] PCP - General Family Medicine 11/06/24 Aashish Neal MD [address] [facility] [address] [place] [address] Internal Medicine 11/06/24 Robb Dixon Jr., MD [address] [facility] [phone] [place] [address] Consulting Physician Colon and Rectal Surgery 11/28/24
== END 2025-01-31 14:32 | disposition home or self-care (01) ==
PROVIDERS: PCP Family Medicine
DX: C41.4 Malignant neoplasm of pelvic bones, sacrum and coccyx (principal)
CPT/HCPCS: 72197; A9577